=== PATIENT | male | born 1985 | race African-American/Black ===

== ENCOUNTER → 2018-07-31 | Emergency (ER) | payer OTHER, BC | LOC: JER 22:29 ==

== ENCOUNTER 2018-08-01 14:09 | Emergency (ER) | payer OTHER ==
[2018-08-01 14:13] VITALS: BP 102/64; PULSE 67; TEMP 97.8; BMI 26.4
--- NOTE | 2018-08-01 15:01 | PDOC ---
History of Present Illness - History of Present Illness Initial Comments: The patient is a 33 year old male, with no significant past medical history, who presents to the emergency department with 1 week of frontal headache. Preceding the headache, patient states that he had some URI symptoms including a slight cough and runny nose that went away. Patient states that his headache acutely worsened last night and began to radiate around his head and he also noted pressure around his eyes. Patient states that when he tilts his head down , his headache becomes worse. Patient states that he rodgers snot normally get headaches. He denies any recent fevers, chills, dizziness. He denies any recent nausea, vomit, diarrhea or constipation. He denies any recent chest pain or shortness of breath. He denies any recent dysuria, frequency, urgency or hematuria. Allergies: NKA Past surgical history: None reported. <Jaqueline Moreno - Last Filed: 08/01/18 15:13> <Duran Landin - Last Filed: 08/01/18 18:54> - General Chief Complaint: Headache Stated Complaint: HEADACHE, FACIAL PAIN Time Seen by Provider: 08/01/18 14:45 Past History <Jaqueline Moreno - Last Filed: 08/01/18 15:13> - Past Medical History COPD: No - Suicide/Smoking/Psychosocial Hx Smoking History: Never smoked Have you smoked in the past 12 months: No Information on smoking cessation initiated: No Hx Alcohol Use: No <Duran Landin - Last Filed: 08/01/18 18:54> - Past Medical History Allergies/Adverse Reactions: Allergies Allergy/AdvReac Type Severity Reaction Status Date / Time No Known Allergies Allergy Verified 08/01/18 14:09 Home Medications: Ambulatory Orders Amoxicillin/Potassium Clav [Augmentin 875-125 Tablet] 1 each PO BID #14 tablet 08/01/18 Review of Systems - Review of Systems Comments:: Constitutional: no fever ENT: no sore throat Cardiovascular: no palpitations; no chest pain Pulmonary: no cough; no trouble breathing Gastrointestinal: No nausea; no vomiting; no diarrhea Genitourinary: No urinary problems; no hematuria Skin: No rash Lymph system: No swollen glands Musculoskeletal: No joint swelling Neurological: No weakness; No numbness; +Headache; no vertigo; no lightheadedness Psychiatric:No anxiety; no depression 08/01/18 15:10 <Jaqueline Moreno - Last Filed: 08/01/18 15:13> *Physical Exam - Vital Signs Last Vital Signs Temp Pulse Resp BP Pulse Ox 97.8 F 67 18 102/64 100 08/01/18 14:09 08/01/18 14:09 08/01/18 14:09 08/01/18 14:09 08/01/18 14:09 - Physical Exam Comments: Vitals: Triage Vital signs reviewed General Appearance: no acute distress, well nourished well developed Head: Atraumatic Eyes: Pupils equal reactive round, extraocular movement intact Neck: Supple; No Nuchal rigidity Chest Wall: Nontender Cardiac: Regular rate and rhythm, no murmurs, no rubs, no gallops Lungs: Clear to auscultation bilateral, good air movement bilaterally Extremities: Full range of motion to all extremities, no cyanosis, clubbing, or edema Skin: Warm and dry, no rashes or lesions, no rash, no petechiae Neuro: AOX3; Cranial Nerves 2-12 grossly intact, Strength intact to all extremities, Sensation intact to all extremities, gait normal Psych: Normal mood, normal affect <Jaqueline Moreno - Last Filed: 08/01/18 15:13> - Vital Signs Last Vital Signs Temp Pulse Resp BP Pulse Ox 97.8 F 67 18 102/64 100 08/01/18 14:09 08/01/18 14:09 08/01/18 14:09 08/01/18 14:09 08/01/18 14:09 <Duran Landin - Last Filed: 08/01/18 18:54> Moderate Sedation - Procedure Monitoring Vital Signs: Procedure Monitoring Vital Signs Temperature 97.8 F 08/01/18 14:09 Pulse Rate 08/01/18 14:09 Respiratory Rate 18 08/01/18 14:09 Blood Pressure 102/64 08/01/18 14:09 O2 Sat by Pulse Oximetry (%) 100 08/01/18 14:09 <Jaqueline Moreno - Last Filed: 08/01/18 15:13> - Procedure Monitoring Vital Signs: Procedure Monitoring Vital Signs Temperature 97.8 F 08/01/18 14:09 Pulse Rate 08/01/18 14:09 Respiratory Rate 18 08/01/18 14:09 Blood Pressure 102/64 08/01/18 14:09 O2 Sat by Pulse Oximetry (%) 100 08/01/18 14:09 <Duran Landin - Last Filed: 08/01/18 18:54> Medical Decision Making - Medical Decision Making 08/01/18 14:59 33 years old with one-week history of intermittent headaches with pressure like pain behind eyes worse when bending over after a recent URI Normal neurologic examination neck is supple history examination is consistent with sinus headache Given greater then 1 week of symptoms we'll treat with 7 day course of Augmentin Niurka pot and Afrin nasal spray Findings, the need for follow-up and strict return instructions discussed with patient. 08/01/18 18:54 <Duran Landin - Last Filed: 08/01/18 18:54> *DC/Admit/Observation/Transfer - Attestations Scribe Attestion: 08/01/18 15:13 Documentation prepared by Jaqueline Moreno, acting as medical scientist for Duran Landin MD. <Jaqueline Moreno - Last Filed: 08/01/18 15:13> - Discharge Dispostion Decision to Admit order: No <Duran Landin - Last Filed: 08/01/18 18:54> Diagnosis at time of Disposition: Sinus infection Qualifiers: Sinusitis location: frontal Chronicity: acute Recurrence: non-recurrent Qualified Code(s): J01.10 - Acute frontal sinusitis, unspecified - Discharge Dispostion Disposition: HOME Condition at time of disposition: Stable - Prescriptions Prescriptions: Amoxicillin/Potassium Clav [Augmentin 875-125 Tablet] 1 each PO BID #14 tablet - Referrals Referrals: Praveen Thapa MD [Staff Physician] - - Patient Instructions Printed Discharge Instructions: Sinusitis, Sinus Headache Additional Instructions: Take Afrin nasal spray as prescribed for 3 days. Purchase an [id number] nasal rinse or Netti Pot, use as directed twice a day after the Afrin. Augmentin as prescribed. Follow-up with Dr. Thapa ENT next week. Return to ED for any fever neck stiffness severe worsening headache or for any concerns.
== END 2018-08-01 15:05 | disposition home or self-care (01) ==
LOC: FER 14:09
DX: J01.10 Acute frontal sinusitis, unspecified (principal)
CPT/HCPCS: 99282-25